=== PATIENT | male | born 1945 | race Caucasian/White ===

== ENCOUNTER 2020-04-23 21:31 | Inpatient (IN) | payer MEDICARE, OTHER, SELFPAY ==
--- NOTE | ~2020-04-23 | XR_ITS ---
EXAMINATION: XR chest ET placement DATE: 04/23/2020 22:18 INDICATION: Endotracheal tube placement TECHNIQUE: frontal view of the chest was obtained. COMPARISON: None FINDINGS: Endotracheal tube tip 6.6 cm above the mejia. Mild patchy airspace opacities in the bilateral mid an d upper lung zones. More streaky opacities in the bilateral lower lung zones. No pleural effusion or pneumothorax. The cardiomediastinal silhouette is normal. At least moderate severity thoracic spondyl osis. IMPRESSION: 1. Mild patchy airspace opacities in the bilateral mid and upper lung zones with more streaky basilar opacities. Differential includes pneumonia, atelectasis or combination thereof. Reviewed, dictated and finalized at location H. ATRIC RN IMPRESSION: 1. Mild patchy airspace opacities in the bilateral mid and upper lung zones wit h more streaky basilar opacities. Differential includes pneumonia, atelectasis or combination thereof.
--- NOTE | ~2020-04-23 | XR_ITS ---
XR chest 1V portable DATE: 04/25/2020 06:44 INDICATION: Hypercapnic respiratory failure. COPD exacerbation. TECHNIQUE: Portable AP chest on 04/25 2020 0629 hours COMPARISON: 04/24/2020 portable AP chest at 0303 hours 04/19/2020 portable AP chest at 2215 hours FINDINGS: There is bullous emphysema, with particularly prominent bullous change at the right apex. Cannot exclude 1.8 cm left upper lobe mass. There is infiltrate, atelectasis or scarring in the right upper lung zone. Mild patchy infiltrate or atelectasis is suggested in both lower lung zones. IMPRESSION: Cannot exclude to 1.8 cm left upper lobe mass Bullous emphysema Right upper and bilateral lower lung infiltrates and/or atelectasis are suggested. Reviewed, dictated and finalized at location A. ING RECOVERY TEACHER IMPRESSION: Cannot exclude to 1.8 cm left upper lobe mass Bullous emphysema Right upper and bilateral lower lung infiltrates and/or atelectasis are suggest ed.
--- NOTE | ~2020-04-23 | XR_ITS ---
XR chest ET placement 04/24/2020 03:05 Indication: Respiratory distress. Endotracheal tube placement. Procedure: AP portable chest Comparison: 04/23/2020 Findings: Endotracheal tube tip approximately 3.3 cm above the mejia. NG tube in the stomach. Stable infiltrates in the upper and lower lung zones without significant change from prior study. No pleura l effusion or pneumothorax. There is atherosclerosis. Impression: 1: Stable patchy infiltrates of the upper and lower lung zones. Differential diagnosis includes atele ctasis/scarring and/or pneumonia. Reviewed, dictated and finalized at location A. ENT PARTS CUTTER MACHINE Impression: 1: Stable patchy infiltrates of the upper and lower lung zones. Differential di agnosis includes atelectasis/scarring and/or pneumonia.
--- NOTE | ~2020-04-23 | CT_ITS ---
EXAMINATION: CT brain wo con DATE: 04/23/2020 23:25 INDICATION: Altered mental status. TECHNIQUE: Computed tomography (CT) of the head was performed without intravenous contrast. Sagittal and coronal reconstructions were performed. The mA was adjusted according to patient size. Iterative reconstruction technique was employed. The dose-length product was 756.67 mGy-cm. COMPARISON: None FINDINGS: Orogastric tube and endotracheal tube as well as a nasopharyngeal airway in expected positions. There is fluid within the distal aspect of the nasopharyngeal airway. No acute intracranial hemorrhage, ac michelle infarction or abnormal extra axial fluid collection. Symmetric prominence of the sulci and ventri cles consistent with mild to moderateage-appropriate diffuse cerebral volume loss. Ventricles are no rmal and symmetric. No mass/mass effect. Changes of bilateral intraocular lens replacement. The orbit s and mastoid air cells are normal. Moderate mucosal thickening in the bilateral ethmoid sinuses and the right frontoethmoidal recess. Intracranial calcified cerebral atherosclerosis is noted. IMPRESSION: 1. Normal aging brain with moderate diffuse volume loss. No acute intracranial process. Reviewed, dictated and finalized at location . ITY LINEMAN
--- NOTE | ~2020-04-23 | XR_ITS ---
EXAMINATION: XR abdomen NG/feed tube insert DATE: 04/23/2020 22:40 INDICATION: Nasogastric tube placement TECHNIQUE: A supine view of the abdomen was obtained for evaluation of feeding tube placement. COMPARISON: None. FINDINGS: Nasogastric tube tip in the body the stomach. Proximal side port is a couple centimeter above level o f the gastroesophageal junction would consider advancement by 5 cm. Atherosclerotic abdominal aorta w ith stenting along the right common and external iliac artery. No dilated loops of gas-filled bowel t o suggest obstruction. Lung bases are clear. Heart size is normal. Mild lumbar levocurvature with mod erate spondylosis. Mild to moderate bilateral hip osteoarthritis with prominent subchondral cystic ch anges at the lateral margins of the acetabula. IMPRESSION: 1. Nasogastric tube tip in the body of the stomach. Consider advancement by [address] the proxima l side port below the gastroesophageal junction. Reviewed, dictated and finalized at location . NG MILL SETTER IMPRESSION: 1. Nasogastric tube tip in the body of the stomach. Consider advancement by [address] the proximal side port below the gastroesophageal junction.
[2020-04-23 21:33] VITALS: BP 145/110; PULSE 108; RESP 19; O2SAT 93
[2020-04-23] MEDS: NALOXONE HCL INJ 2 MG/2 ML AMP IV PUSH (21:34)
[2020-04-23] MEDS: ROCURONIUM BROMIDE 50 MG/5 ML VIAL IV PUSH (21:42)
[2020-04-23] MEDS: MIDAZOLAM HCL (*CRX) 2 MG/2 ML VIAL 6 MG IV PUSH (21:43)
[2020-04-23 21:45] VITALS: PULSE 96; O2SAT 100
--- NOTE | 2020-04-23 21:45 | ECG_ITS ---
Measurements Intervals [place] Rate: 102 P: 87 AL: 158 QRS: 78 QRSD: 90 T: 71 QT: 348 QTc: 454 Interpretive Statements SINUS TACHYCARDIA BORDERLINE ECG Electronically Signed On 04-24-2020 7:25:49 SPLITTING MACHINE OPERATOR by Ariel Calvert D.O.
--- NOTE | 2020-04-23 21:45 | PC.NURSE ---
ET tube size 8.0 used and 55 at the gums.
--- NOTE | 2020-04-23 21:49 | ED.GENADULT ---
HPI - General Adult General Chief complaint: Unspecified Stated complaint: unresponsive, intubated Time Seen by Provider: 04/23/20 21:45 History of Present Illness HPI narrative: Found unresponsive at home by family. Last seen well 2 days ago. Known history of COPD per EMS. They attempted intubation , but were not able to get it. LMA was placed. Oxygenated well with assisted ventilation. Patient not able to provide history due to medical condition. Review of Systems Review of Systems: ROS unobtainable: Yes unobtainable due to medical condition [facility] Past Medical History Medical History (Updated 04/24/20 @ 03:37 by Jerry Rosenberg MD) Chronic respiratory failure COPD (chronic obstructive pulmonary disease) Social History Social History (Updated 04/24/20 @ 02:11 by Rich Lorenzana MD) Smoking status: Current every day smoker Tobacco type: cigarettes Comments unable to obtain additonal history Exam Const: General: ill appearing Nutritional Appearance: thin Orientation/consciousness: Other orientation findings (sedated) HENMT: Mouth: Yes other (LMA in place) Eyes: Other: Pupils Resp: Effort & Inspection: decreased respiratory effort Auscultation: crackles Cardio: Rate: regular rate Rhythm: regular rhythm GI: GI Palp: Yes Soft to palpation Skin: Other: poor turgor. dried feces on legs. Neuro: Other: with draws from painful stimuli Extrem: Other: atrophy Course Vital Signs Vital signs: Vital Signs Pulse Rate 108 H 04/23/20 21:33 Respiratory Rate 19 04/23/20 21:33 Blood Pressure 145/110 H 04/23/20 21:33 Pulse Oximetry 93 04/23/20 21:33 Pulse Rate 89 04/24/20 01:23 Respiratory Rate 24 H 04/24/20 01:23 Blood Pressure 121/71 04/24/20 01:23 Pulse Oximetry 100 04/24/20 00:05 Procedures Intubation Intubation #1: Intubation Date: 04/23/20 Intubation Time: 21:55 sedative: Versed Mg Given: 6 paralytic: Rocuronium Mg Given: 50 Laryngoscope: fiber optic video scope Tube Size (cm): 8.0 Method of Intubation: orotracheal Number of Attempts: 1 Tube Placement Confirmation: visualized tube passing through cords, equal breath sounds bilaterally, no breath sounds over epigastrium and confirmation by capnometry Patient Tolerated Procedure: well Intubation Complications: none Medical Decision Making MDM Narrative Medical decision making narrative: Presentation likely explained by COPD with CO2 retention. Cannot rule out pneumonia or COVID-19 at this time. Will start antibiotis and admit to the ICU for further management. Repeat ABG shows significant improvment. Medical Records Medical records reviewed: Yes I reviewed the patient's medical records. Vital Signs Vital Signs: Vital Signs Pulse Rate 108 H 04/23/20 21:33 Respiratory Rate 19 04/23/20 21:33 Blood Pressure 145/110 H 04/23/20 21:33 Pulse Oximetry 93 04/23/20 21:33 Pulse Rate 89 04/24/20 01:23 Respiratory Rate 24 H 04/24/20 01:23 Blood Pressure 121/71 04/24/20 01:23 Pulse Oximetry 100 04/24/20 00:05 Lab Data Lab results reviewed: Yes I reviewed the patient's lab results. Result diagrams: 04/23/20 21:56 04/23/20 21:56 Labs: Lab Results 04/23/20 04/23/20 04/23/20 Range/Units 21:50 21:56 21:56 WBC 11.7 H (4.5-10.0) K/mm3 RBC 3.85 L (4.6-6.20) M/mm3 Hgb 12.2 L (14.0-18.0) g/dL Hct 41.0 L (42.0-52.0) % MCV 106.5 H (80-100) fl MCH 31.7 (26-34) pg MCHC 29.8 L (32-36) g/dl RDW 14.4 (11.5-14.5) % Plt Count 285 (150-375) k/mm3 MPV 9.4 (7.4-10.4) fl Immature Gran % (Auto) 2.4 H (0-0.5) % Neut % (Auto) 86.0 H (45.5-73.1) % Lymph % (Auto) 4.6 L (18.3-44.2) % [place] % (Auto) 6.5 (2.6-8.5) % Eos % (Auto) 0.0 (0-4.4) % Baso % (Auto) 0.5 (0.2-1.2) % Lymph # (Auto) 0.54 L (0.9-3.2) K/mm3 [place] # (
[2020-04-23 22:00] LABS: Alveolar/Arterial O2 Gradient 112.3 mmHg; Base Excess ABG 9.1 mEq/l (+/-2.0); Fractional Inspired Oxygen 100 %; HCO3 ABG 39.2 mEq/l (22.0-26.0); Oxygen Content ABG 18.7 %vol (16.0-22.0); Oxygen Saturation ABG 99.8 % (95.0-100.0); Oxyhemoglobin 96.6 % THb (90.0-100.0); PO2 ABG 513.6 mmHg (80.0-100.0); PO2 FiO2 Ratio Arterial Blood 5.14 %; Total Hemoglobin 12.7 g/dL (12.0-18.0)
[2020-04-23 22:01] LABS: PCO2 ABG 87.1 mmHg (35.0-45.0); pH ABG 7.271 (7.350-7.450)
[2020-04-23 22:02] LABS: Device VENTILATOR; Site Drawn RIGHT BRACHIAL
[2020-04-23 22:04] LABS: Arterial Blood Gas PEEP 5 cmH2O; Arterial Blood Gas Tidal Volume 450 ml; Arterial Blood Gas Vent Mode CMV; Arterial Blood Gas Ventilator rate 18 /MIN
[2020-04-23 22:19] LABS: Basophils Absolute Auto 0.1 K/mm3 (0.0-0.1); Basophils Percent Auto 0.5 % (0.2-1.2); Hemoglobin 12.2 g/dL (14.0-18.0); Immature Granulocyte Absolute 0.28 K/mm3 (0.00-0.031); Immature Granulocyte Percent A 2.4 % (0-0.5); Lymphocytes Absolute Auto 0.54 K/mm3 (0.9-3.2); Lymphocytes Percent Auto 4.6 % (18.3-44.2); Mean Corpuscular HGB Conc 29.8 g/dl (32-36); Mean Corpuscular Hemoglobin 31.7 pg (26-34); Mean Corpuscular Volume 106.5 fl (80-100); Mean Platelet Volume 9.4 fl (7.4-10.4); Monocytes Absolute Auto 0.8 K/mm3 (0.1-0.6); Monocytes Percent Auto 6.5 % (2.6-8.5); Platelet Count Result 285 k/mm3 (150-375); Red Blood Count 3.85 M/mm3 (4.6-6.20); Red Cell Distribution Width 14.4 % (11.5-14.5); White Blood Count 11.7 K/mm3 (4.5-10.0)
[2020-04-23 22:24] LABS: Add Urine Microscopic? YES; Appearance Urine Clear (Clear); Bilirubin Urine Negative (Negative); Blood Urine Negative (Negative); Color Urine Yellow (Yellow); Glucose Urine UA Negative (Negative); Ketones Urine Trace mg/dL (Negative); Leukocyte Esterase Ur Negative LEU/UL (Negative); Mucus Urine Rare /lpf; Nitrate Urine Negative (Negative); Protein Urine 2+ mg/dL (Negative); RBC Urine 0-2 /hpf (0-2); Specific Grav Ur 1.015 (1.001-1.035); Urobilinogen Urine Negative mg/dL (<2.0); WBC Urine 0-3 /hpf
[2020-04-23 22:28] LABS: INR 0.9; Prothrombin Time 12.7 Seconds (11.1-14.7)
[2020-04-23 22:29] LABS: Lactic Acid Reflex 1.8 mmol/L (0.7-2.1); Partial Thromboplastin Time 29.2 SECONDS (22.3-36.8)
[2020-04-23 22:45] LABS: Platelet Estimate Adequate (Adequate)
[2020-04-23 22:46] LABS: Hypochromasia 1+ (NORMAL)
[2020-04-23 22:58] VITALS: PULSE 90; RESP 26
[2020-04-23] MEDS: FENTANYL 2,500MCG/NS250ML(*CRX 2,500 MCG/250 ML BAG IV CONT (22:58)
[2020-04-23 23:02] LABS: Alanine Aminotransferase 20 U/L (4-50); Albumin Level 3.7 g/dL (3.5-5.1); Alkaline Phosphatase 105 U/L (38-126); Anion Gap 10.99999 mmol/L (8-16); Aspartate Amino Transferase 27 U/L (17-59); Bilirubin,Total 0.9 mg/dL (0.2-1.3); Blood Urea Nitrogen 31 mg/dL (9-20); CRP 1.5 mg/dL (<1.0); Calcium 9.3 mg/dL (8.4-10.2); Carbon Dioxide > 40 mmol/L (22-30); Chloride 93 mmol/L (98-107); Estimated CRCL calculation 67 ml/min; Estimated Glomerular Filt Rate > 60; Glucose 160 mg/dL (75-110); NT Pro B Type Natriuretic Pept 1110 PG/ML (5-100); Sodium 144 mmol/L (137-145); Troponin I 0.035 ng/mL (0.000-0.034)
[2020-04-24] VITALS (35 sets, daily range): BP systolic 92–226; BP diastolic 63–194; PULSE 53–107; RESP 18–24; TEMP 36.1–37.1; O2SAT 91–100; BMI 21.9
[2020-04-24 00:15] LABS: Alveolar/Arterial O2 Gradient 253.5 mmHg; Base Excess ABG 5.6 mEq/l (+/-2.0); Fractional Inspired Oxygen 45 %; HCO3 ABG 33.2 mEq/l (22.0-26.0); Oxygen Content ABG 16.7 %vol (16.0-22.0); Oxygen Saturation ABG 88.9 % (95.0-100.0); Oxyhemoglobin 90.1 % THb (90.0-100.0); PO2 ABG 60.1 mmHg (80.0-100.0); PO2 FiO2 Ratio Arterial Blood 1.34 %; Total Hemoglobin 13.2 g/dL (12.0-18.0)
[2020-04-24 00:16] LABS: Device VENTILATOR; Site Drawn RIGHT BRACHIAL
[2020-04-24 00:17] LABS: Arterial Blood Gas PEEP 5 cmH2O; Arterial Blood Gas Tidal Volume 450 ml; Arterial Blood Gas Vent Mode CMV; Arterial Blood Gas Ventilator rate 24 /MIN
[2020-04-24] MEDS: methylPREDNISolone SOD SUCC 125 MG VIAL 60 MG IV PUSH ×5 (00:51→23:58)
--- NOTE | 2020-04-24 02:03 | PM.IMHP ---
H&P: HPI History of Present Illness Date/Time: 04/24/20 02:04 Chief complaint: Acute respiratory failure, encephalopathy Narrative: This is a 75-year-old male with known history of severe end-stage COPD as well as chronic respiratory failure on 4 L of oxygen at home who was found unresponsive at home by his family. The patient's sister who is at bedside tells me that the patient lives alone and obtained a life alert this past May. His sister mentions that he used to drink alcohol but not any longer.This evening around 8:00 p.m. the patient pushed his Life Alert and the family became aware that he was in trouble. It took him about 40 minutes to get to his house and they found him unresponsive. EMS arrived on the scene shortly afterwards and attempted intubation but placed an LMA as they could not intubate the patient. On arrival to the emergency room the patient was intubated and placed on mechanical ventilation. Initial ABG demonstrated hypercapnic respiratory failure with a pCO2 of 87.1. CXR showed miild patchy airspace opacities in the bilateral mid and upper lung zones with more streaky basilar opacities. The patient has been started on IV antibiotics, steroid therapy, IV fluids and bronchodilators. No futher history is obtainable as the patient is intubated and sedated on mechanical ventilation. Review of Systems Review of Systems: ROS unobtainable: Yes unobtainable due to medical condition and unobtainable due to mental status PMFSH Past Medical History Medical History Chronic respiratory failure COPD (chronic obstructive pulmonary disease) Family History Family History Mother No problems noted. Sibling Cancer Sibling Cancer Social History Social History Smoking packs per day: 1 Smoking cigarettes per day: 20.0 Years smoked: 50 Smoking pack-years: 50.00 Smoking status: Current every day smoker Tobacco type: cigarettes Alcohol intake: current Drinks per week: 1 Substance use: unknown Spiritual care concerns: No Comments Past medical/surgical/family/social histories are not obtainable from the patient at this time. Meds Home Medications and Allergies Home Medications Medication Instructions Recorded Confirmed Type apixaban [Eliquis] 5 mg PO BID 04/24/20 04/24/20 History atorvastatin 40 mg PO HS 04/24/20 04/24/20 History buspirone 5 mg PO TID 04/24/20 04/24/20 History dextromethorphan-guaifenesin 1 tablet PO DAILY 04/24/20 04/24/20 History [Mucinex DM] diltiazem HCl 180 mg PO DAILY 04/24/20 04/24/20 History finasteride [Proscar] 5 mg PO DAILY 04/24/20 04/24/20 History furosemide [Lasix] 40 mg PO DAILY 04/24/20 04/24/20 History potassium chloride 40 meq PO BID 04/24/20 04/24/20 History tamsulosin 0.4 mg PO HS 04/24/20 04/24/20 History Vital Signs Vital Signs - 24 hr 04/23/20 21:33 04/23/20 21:45 04/23/20 22:58 Pulse Rate 108 H 96 90 Respiratory Rate 19 26 H Blood Pressure 145/110 H Pulse Oximetry 93 100 04/24/20 00:05 04/24/20 00:22 04/24/20 01:23 Pulse Rate 94 89 Respiratory Rate 24 H Blood Pressure 226/194 H 121/71 Pulse Oximetry 100 Exam Const: General: ill appearing and other (intubated, sedated, on mechanical ventilation) Nutritional Appearance: well nourished Orientation/consciousness: patient oriented x3 HENMT: Head: normal to inspection General nose exam: Normal external nose present Face and sinus: normal facial exam Mouth: Yes other (ETT in place+ ) Eyes: Pupils: Equal, round and reactive pupils present Neck: Neck: supple and no JVD Thyroid: thyroid normal Lymphatic: lymphadenopathy not noted Resp: Effort & Inspection: tachypneic Auscultation: wheezes throughout Cardio: Rate: tachycardic Rhythm: regular rhythm Heart sounds: no murmurs GI: Inspection
--- NOTE | 2020-04-24 03:25 | PC.NURSE ---
This patient, Hubert Luna, was admitted to Intensive Care Unit-10. Patient/family oriented to hospital policies and general routines including ID bracelet, bed and alarms, visiting hours, pain management, procedures, bathroom and other care routines, personal items, smoking policy, room service/diet, and visiting hours. Information on how to activate the Rapid Response Team has been discussed. Patient/Family are encouraged to report perceived risks to care and to ask questions if they do not understand what they are told or what they should do.
[2020-04-24 03:34] LABS: Acetaminophen < 10 ug/mL (10-30); Salicylate < 1.0 mg/dL (2-20)
[2020-04-24 03:40] LABS: Creatine Kinase 64 U/L (55-170)
[2020-04-24 03:43] LABS: Hemoglobin A1C 6.7 % (<5.7)
[2020-04-24 04:10] LABS: Troponin I 0.055 ng/mL (0.000-0.034)
[2020-04-24] MEDS: LACTATED RINGERS 1,000 ML 125 ML IV CONT ×2 (04:12→12:26)
[2020-04-24] MEDS: FENTANYL 2,500MCG/NS250ML(*CRX 2,500 MCG/250 ML BAG 15 MCG IV CONT (04:14)
[2020-04-24 04:23] LABS: Barbiturate Screen Urine Negative (Negative); Benzodiazepines Screen Urine Positive (Negative)
[2020-04-24 04:26] LABS: Amphetamine Screen Urine Negative (Negative); Cocaine Screen Urine Negative (Negative); Methadone Screen Urine Negative (Negative); Opiate Screen Urine Negative (Negative); Phencyclidine Screen Urine Negative (Negative)
[2020-04-24 04:34] LABS: Cannabinoid Screen Urine Negative (Negative)
[2020-04-24 04:48] LABS: Influenza Control Positive
[2020-04-24 07:59] LABS: Alveolar/Arterial O2 Gradient 148.7 mmHg; Base Excess ABG 8.6 mEq/l (+/-2.0); Fractional Inspired Oxygen 45 %; HCO3 ABG 31.9 mEq/l (22.0-26.0); Oxygen Content ABG 16.3 %vol (16.0-22.0); Oxygen Saturation ABG 98.8 % (95.0-100.0); Oxyhemoglobin 97.8 % THb (90.0-100.0); PO2 ABG 127.8 mmHg (80.0-100.0); PO2 FiO2 Ratio Arterial Blood 2.84 %; Total Hemoglobin 11.7 g/dL (12.0-18.0)
[2020-04-24 08:02] LABS: Device VENTILATOR; Modified Allen's Test Pass; Site Drawn LEFT RADIAL; pH ABG 7.531 (7.350-7.450)
[2020-04-24 08:03] LABS: Arterial Blood Gas PEEP 5 cmH2O; Arterial Blood Gas Tidal Volume 450 ml; Arterial Blood Gas Vent Mode CMV; Arterial Blood Gas Ventilator rate 24 /MIN
[2020-04-24] MEDS: ALBUTEROL SULFATE NEB 2.5 MG/0.5 ML INH 5 MG INHALATION ×3 (08:15→19:46)
[2020-04-24] MEDS: IPRATROPIUM BR 0.02% INH SOLN 0.5 MG/2.5 ML VIAL INHALATION ×3 (08:15→19:46)
--- NOTE | 2020-04-24 11:20 | PCDIET ---
MD ordered to start tube feedings: Glucerna 1.2 at goal rate of 60mL/hr will provide 1584kcal, 79g protein and 1062mL free water over 22 hours/day. Agree with 30mL water flush every 4 hours.
[2020-04-24] MEDS: LIDOCAINE HCL 1% PF INJ 5 ML VIAL INFILTRATE (11:25)
[2020-04-24 12:24] LABS: Basophils Percent Auto 0.1 % (0.2-1.2); Hematocrit 33.7 % (42.0-52.0); Hemoglobin 10.3 g/dL (14.0-18.0); Immature Granulocyte Absolute 0.08 K/mm3 (0.00-0.031); Lymphocytes Absolute Auto 0.42 K/mm3 (0.9-3.2); Lymphocytes Percent Auto 5.4 % (18.3-44.2); Mean Corpuscular HGB Conc 30.6 g/dl (32-36); Mean Corpuscular Volume 101.5 fl (80-100); Mean Platelet Volume 9.3 fl (7.4-10.4); Monocytes Absolute Auto 0.4 K/mm3 (0.1-0.6); Monocytes Percent Auto 4.8 % (2.6-8.5); Neutrophils Absolute Auto 6.9 K/mm3 (1.3-6.7); Neutrophils Percent Auto 88.7 % (45.5-73.1); Platelet Count Result 218 k/mm3 (150-375); Red Blood Count 3.32 M/mm3 (4.6-6.20); Red Cell Distribution Width 14.6 % (11.5-14.5); White Blood Count 7.8 K/mm3 (4.5-10.0)
[2020-04-24 12:36] LABS: Anion Gap 2.99999 mmol/L (8-16); Blood Urea Nitrogen 38 mg/dL (9-20); Calcium 8.7 mg/dL (8.4-10.2); Carbon Dioxide > 40 mmol/L (22-30); Chloride 95 mmol/L (98-107); Estimated CRCL calculation 58 ml/min; Estimated Glomerular Filt Rate > 60; Glucose 199 mg/dL (75-110); Potassium 4.2 mmol/L (3.4-5.0); Sodium 138 mmol/L (137-145)
[2020-04-24 12:54] LABS: Troponin I 0.039 ng/mL (0.000-0.034)
[2020-04-24] MEDS: CENTRAL LINE FLUSH 10 ML IV PUSH ×2 (14:05→21:40)
--- NOTE | 2020-04-24 15:10 | WPDCNINT ---
Assessment and Plan Assessment and plan (1) Acute respiratory failure with hypercapnia: Code(s): J96.02 - Acute respiratory failure with hypercapnia Status: Acute Assessment and Plan: patient presented with acute hypercapnic respiratory failure, was intubated in the ER -currently on mechanical ventilation, CMV mode, 5 of PEEP and 45% FiO2. Patient in respiratory alkalosis, will decrease rate. -continue fentanyl Versed infusion for sedation, maintain RASS of 0 to -2, daily sedation vacation -chest x-ray and ABGs reviewed -continue ceftriaxone, azithromycin and vancomycin were initiated on 04/24/2020 -according the family patient does have a history of recent admission and multiple intubations over the course of the year. Patient normally is treated at [facility] (2) Acute exacerbation of chronic obstructive pulmonary disease (COPD): Code(s): J44.1 - Chronic obstructive pulmonary disease with (acute) exacerbation Status: Acute Assessment and Plan: Continue Solu-Medrol, antibiotics and bronchodilators (3) Acute encephalopathy: Code(s): G93.40 - Encephalopathy, unspecified Status: Acute Assessment and Plan: Patient was found unresponsive by family at his house. Hypercapnic respiratory failure. Unknown if there was any hypoxia -will wean sedation in a.m. and try to assess mental status -CT head on admission showed normal aging brain with moderate diffuse volume loss, no acute intracranial process (4) Suspected 2019 novel coronavirus infection: Code(s): Z20.828 - Contact with and (suspected) exposure to other viral communicable diseases Status: Acute Assessment and Plan: SARS-CoV-2 PCR obtained and pending -continue droplet, airborne and contact isolation/precautions (5) Elevated troponin: Code(s): R77.8 - Other specified abnormalities of plasma proteins Status: Acute Assessment and Plan: Troponin slightly elevated and plateaued -could be related to respiratory distress -no EKG changes -continue to monitor (6) DVT prophylaxis: Code(s): Z29.9 - Encounter for prophylactic measures, unspecified Status: Acute Assessment and Plan: DVT prophylaxis: Lovenox (7) Dietary counseling and surveillance: Code(s): Z71.3 - Dietary counseling and surveillance Status: Acute Assessment and Plan: Will start tube feeds today Stress ulcer prophylaxis: Protonix Additional Plan Discussed with Efren patient's son and updated with his condition and plan of care. Code status: Full code Critical care time spent: 49 minutes Due to a high probability of clinically significant, life threatening deterioration, the patient required my highest level of preparedness to intervene emergently and I personally spent this critical care time directly and personally managing the patient. This critical care time included obtaining a history; examining the patient; pulse oximetry; ordering and review of studies; arranging urgent treatment with development of a management plan; evaluation of patient's response to treatment; frequent reassessment; and discussions with other providers. It was exclusive of separately billable procedures and treating other patients and teaching time. Please see Assessment and Plan section and the rest of the note for further information on patient assessment and treatment Director Occupational Consult Note Consult date: 04/24/20 Time Seen: 07:10 Reason for consult: Acute respiratory failure, encephalopathy HPI: Hubert Luna is a 75 year old male chronic respiratory failure on 4 L home O2, history of PD, tobacco abuse presented to the ED after he was found unresponsive at home by his family. Patient had a life alert which was activated and as the family became aware it took them 40 minutes to reach his house and found him unresponsive, EMS also shortly arrived at the scene, attempted to intubate the patient but was u
[2020-04-24] MEDS: PANTOPRAZOLE SODIUM IV 40 MG VIAL IV PUSH (16:04)
[2020-04-24 21:15] LABS: SARS-CoV-2 RNA PCR Negative
[2020-04-25] VITALS (36 sets, daily range): BP systolic 95–145; BP diastolic 61–118; PULSE 50–91; RESP 16–24; TEMP 36.3–36.9; O2SAT 88–100
--- NOTE | 2020-04-25 | ECHO_ITS ---
Patient Info Name: Hubert Luna Age: 75 years : 1945 Gender: Male Ht: 68 in Wt: 156 lbs BSA: 1.85 m2 HR: 70 bpm BP: 127 / 80 mmHg Heart Rhythm: Sinus Rhythm Technical Quality: Poor Exam Date: 04/25/2020 2:30 PM Exam Location: [facility] Patient Status: Inpatient Admit Date: 04/23/2020 Staff Ordering Physician: Katy Vital MD Hand Trucker: Pooja De Leon [facility] Attending Provider: Rich Lorenzana MD Referring Physician: Amanuel SCHAEFER; Exam Type: CA echo dop color flow w con Study Info Complete two-dimensional, color flow and Doppler transthoracic echocardiogram is performed with contrast to opacify the left ventricle and to improve the deliniation of the left ventricle endocardial borders. Contrast/Agitated Saline Contrast/Ag. Saline: Definity Amount: 4.00 ml Reason for Poor Study: poor echocardiographic windows Summary 1. Left ventricular chamber dimension is normal. 2. Left ventricular systolic function is normal, estimated at 50-55%. 3. Definity copntrast injected to improve visualization \E\. 4. Aortic valve is mildly slerotic but not stenotic. Left Ventricle Left ventricular chamber dimension is normal. Left ventricular systolic function is normal, estimated at 50-55%. The left ventricular diastolic function is normal. Definity copntrast injected to improve visualization \E\. Right Ventricle Right ventricular chamber dimension is normal. Left Atria Left atrial chamber dimension is normal. Right Atria Right atrial chamber dimension is normal. Aortic Valve The aortic valve is trileaflet. There is mild aortic valve sclerosis. Aortic valve is mildly slerotic but not stenotic. Pulmonic Valve The pulmonic valve is not well visualized. Mitral Valve The mitral valve has normal leaflets. Tricuspid Valve The tricuspid valve leaflets are normal. Pericardium/Pleural The pericardium appears normal. Aorta The aortic root size at the sinus of Valsalva is normal. Left Ventricular Outflow Tract Name Value Normal LVOT 2D LVOT Diameter 2.22 cm LVOT Doppler LVOT Peak Gradient 6 mmHg LVOT Mean Gradient 3 mmHg LVOT VTI 23.79 cm LVOT VTI/AV VTI Ratio 1.04 LVOT Stroke Volume 92.00 ml LVOT CO 5.61 l/min LVOT CI 3.04 L/min/m2 Pulmonic Valve Name Value Normal PV Doppler PV Peak Gradient 11 mmHg Mitral Valve Name Value Normal MV Doppler
[2020-04-25] MEDS: FENTANYL 2,500MCG/NS250ML(*CRX 2,500 MCG/250 ML BAG 7.5 MCG IV CONT (01:15)
[2020-04-25] MEDS: ALBUTEROL SULFATE NEB 2.5 MG/0.5 ML INH 5 MG INHALATION ×2 (02:20→08:06)
[2020-04-25] MEDS: IPRATROPIUM BR 0.02% INH SOLN 0.5 MG/2.5 ML VIAL INHALATION ×4 (02:20→21:18)
[2020-04-25 04:20] LABS: Alveolar/Arterial O2 Gradient 159.6 mmHg; Base Excess ABG 5.9 mEq/l (+/-2.0); Carboxyhemoglobin 0.3 % THb (0-2.0); Fractional Inspired Oxygen 40 %; HCO3 ABG 30.6 mEq/l (22.0-26.0); Methemoglobin ABG 0.2 %THb (0-1.5); Oxygen Content ABG 14.8 %vol (16.0-22.0); Oxygen Saturation ABG 95.3 % (95.0-100.0); Oxyhemoglobin 93.4 % THb (90.0-100.0); PCO2 ABG 45.2 mmHg (35.0-45.0); PO2 ABG 73.6 mmHg (80.0-100.0); PO2 FiO2 Ratio Arterial Blood 1.84 %; Reduced Hemoglobin 6.1 %THb (0-5.0); Total Hemoglobin 11.2 g/dL (12.0-18.0); pH ABG 7.449 (7.350-7.450)
[2020-04-25 04:21] LABS: Arterial Blood Gas Vent Mode CMV; Arterial Blood Gas Ventilator rate 18 /MIN; Device VENTILATOR; Modified Allen's Test Unable to perform; Site Drawn LEFT RADIAL
[2020-04-25 04:22] LABS: Arterial Blood Gas PEEP 5 cmH2O; Arterial Blood Gas Tidal Volume 450 ml
[2020-04-25] MEDS: CENTRAL LINE FLUSH 10 ML IV PUSH ×3 (05:21→21:13)
[2020-04-25] MEDS: methylPREDNISolone SOD SUCC 125 MG VIAL 60 MG IV PUSH ×2 (05:21→11:32)
[2020-04-25 05:42] LABS: Basophils Percent Auto 0.1 % (0.2-1.2); Hematocrit 33.2 % (42.0-52.0); Hemoglobin 10.4 g/dL (14.0-18.0); Immature Granulocyte Absolute 0.07 K/mm3 (0.00-0.031); Immature Granulocyte Percent A 0.9 % (0-0.5); Lymphocytes Absolute Auto 0.28 K/mm3 (0.9-3.2); Lymphocytes Percent Auto 3.7 % (18.3-44.2); Mean Corpuscular HGB Conc 31.3 g/dl (32-36); Mean Corpuscular Hemoglobin 30.8 pg (26-34); Mean Corpuscular Volume 98.2 fl (80-100); Mean Platelet Volume 9.8 fl (7.4-10.4); Monocytes Absolute Auto 0.3 K/mm3 (0.1-0.6); Monocytes Percent Auto 4.2 % (2.6-8.5); Neutrophils Percent Auto 91.1 % (45.5-73.1); Platelet Count Result 227 k/mm3 (150-375); Red Blood Count 3.38 M/mm3 (4.6-6.20); Red Cell Distribution Width 15.2 % (11.5-14.5); White Blood Count 7.7 K/mm3 (4.5-10.0)
[2020-04-25 06:14] LABS: Alanine Aminotransferase 16 U/L (4-50); Alkaline Phosphatase 75 U/L (38-126); Anion Gap 3 mmol/L (8-16); Aspartate Amino Transferase 20 U/L (17-59); Bilirubin,Total 0.6 mg/dL (0.2-1.3); Blood Urea Nitrogen 52 mg/dL (9-20); CRP 1.5 mg/dL (<1.0); Calcium 8.8 mg/dL (8.4-10.2); Carbon Dioxide 38 mmol/L (22-30); Chloride 92 mmol/L (98-107); Estimated CRCL calculation 60 ml/min; Estimated Glomerular Filt Rate > 60; Glucose 315 mg/dL (75-110); Magnesium 2.3 mg/dL (1.6-2.3); Phosphorus 3.9 mg/dL (2.5-4.5); Potassium 4.5 mmol/L (3.4-5.0); Sodium 133 mmol/L (137-145)
[2020-04-25 06:32] LABS: Platelet Estimate Adequate (Adequate)
[2020-04-25 06:33] LABS: Hypochromasia 2+ (NORMAL); Ovalocytes 2+ (NORMAL); Tear Drop Cells 2+ (NORMAL)
--- NOTE | 2020-04-25 08:24 | PC.NURSE ---
Spoke with POA and update given. POA states no allergies.
[2020-04-25] MEDS: PANTOPRAZOLE SODIUM IV 40 MG VIAL IV PUSH (09:32)
[2020-04-25] MEDS: ENOXAPARIN 40 MG/0.4 ML SYRINGE SUB-Q (09:43)
[2020-04-25 09:50] LABS: Glucose Point of Care 233 (65-105)
[2020-04-25] MEDS: INSULIN ASPART (*BKC) 100 UNITS/ML SUB-Q ×3 (09:50→23:48)
[2020-04-25] MEDS: FUROSEMIDE INJ 40 MG/4 ML VIAL 20 MG IV PUSH (11:31)
--- NOTE | 2020-04-25 13:35 | WPDINTPN ---
Progress Note: A&P Assessment and Plan (1) Acute respiratory failure with hypercapnia: Code(s): J96.02 - Acute respiratory failure with hypercapnia Status: Acute Assessment and Plan: extubated to BIPAP 18/4, back up rate of 16 and titrating FiO2 for sats of 88-92% (2) Chronic respiratory failure: Qualifiers: Respiratory failure complication: unspecified whether with hypoxia or hypercapnia Qualified Code(s): J96.10 - Chronic respiratory failure, unspecified whether with hypoxia or hypercapnia Code(s): J96.10 - Chronic respiratory failure, unspecified whether with hypoxia or hypercapnia Status: Acute (3) Severe chronic obstructive pulmonary disease: Code(s): J44.9 - Chronic obstructive pulmonary disease, unspecified Status: Acute Assessment and Plan: - decrease solumedrol to 40 mg IV Q6 and continue for 5-7 days - continue ceftriaxone and azithromycin for 5-7 days - continue duonebs Q6h - pulmicort added 0.5 mg bid (4) COPD exacerbation: Code(s): J44.1 - Chronic obstructive pulmonary disease with (acute) exacerbation Status: Acute Subjective Date/time seen: 04/25/20 13:35 Interval history: 75 y/o male with severe COPD, hyperlipidemia, AFib, prior hisotory of TB is intubated for COPD exacerbation. He was doing well on minimal vent support and did well on SBT and was extubated to BIPAP successfully. Review of Systems Review of Systems: All systems reviewed & are unremarkable except as noted in HPI and below Exam Const: General: comfortable and no acute distress HENMT: Other: ETT in place Eyes: Pupils: Equal, round and reactive pupils present Neck: Neck: supple Resp: Effort & Inspection: normal respiratory effort Auscultation: rales and diminished lung sounds Cardio: Rate: bradycardic Rhythm: regular rhythm GI: Inspection: non-distended GI Palp: Yes Soft to palpation and No Tenderness to palpation present (GI) Auscultation: normal bowel sounds : Other: Alvarado catheter in place Urinary Catheter: Urinary Catheter: patent and draining and urine clear Skin: General skin exam: normal color and no rashes or lesions noted Neuro: Other: Patient intubated and sedated, does not follow simple commands open his eyes Extrem: General: normal to inspection, no edema and no pedal edema Psych: Other: Unable to assess at this time Objective Data Vital Signs Vital Signs: Vital Signs - 24 hr 04/24/20 14:00 04/24/20 14:14 04/24/20 16:00 Temperature 36.1 C L Pulse Rate 55 L 60 59 L Respiratory Rate 18 18 Blood Pressure 108/67 102/70 Pulse Oximetry 100 100 100 04/24/20 16:02 04/24/20 16:51 04/24/20 18:00 Temperature Pulse Rate 58 L 55 L 55 L Respiratory Rate 18 18 Blood Pressure 93/68 L Pulse Oximetry 100 100 04/24/20 18:40 04/24/20 18:41 04/24/20 19:49 Temperature Pulse Rate 56 L 56 L 58 L Respiratory Rate 18 18 Blood Pressure Pulse Oximetry 91 04/24/20 19:52 04/24/20 20:00 04/24/20 22:00 Temperature 36.4 C L Pulse Rate 58 L 55 L 54 L Respiratory Rate 18 18 18 Blood Pressure 109/76 92/63 L Pulse Oximetry 99 100 04/24/20 23:45 04/25/20 00:00 04/25/20 00:35 Temperature 36.3 C L Pulse Rate 54 L 54 L Respiratory Rate 18 Blood Pressure 109/66 Pulse Oximetry 96 96 96 04/25/20 01:13 04/25/20 01:15 04/25/20 02:00 Temperature Pulse Rate 54 L 54 L 50 L Respiratory Rate 18 18 18 Blood Pressure 95/61 L Pulse Oximetry 98 04/25/20 02:23 04/25/20 02:25 04/25/20 04:00 Temperature 36.4 C L Pulse Rate 50 L 50 L 50 L Respiratory Rate 18 18 Blood Pressure 103/63 Pulse Oximetry 98 97 04/25/20 04:21 04/25/20 05:18 04/25/20 05:19 Temperature Pulse Rate 50 L 56 L 55 L Respiratory Rate 18 18 Blood Pressure Pulse Oximetry 98 04/25/20 06:00 04/25/20 08:05 04/25/20 08:08 Temperature Pulse Rate 54 L 62 62 Respiratory Rate 18 18 Blood Pressure
[2020-04-25] MEDS: ALBUTEROL SULFATE NEB 2.5 MG/0.5 ML INH INHALATION ×2 (13:56→21:18)
[2020-04-25 15:22] LABS: Glucose Point of Care 233 (65-105)
[2020-04-25 15:52] LABS: Basophils Percent Auto 0.2 % (0.2-1.2); Hematocrit 34.6 % (42.0-52.0); Hemoglobin 11.1 g/dL (14.0-18.0); Immature Granulocyte Absolute 0.07 K/mm3 (0.00-0.031); Immature Granulocyte Percent A 0.6 % (0-0.5); Lymphocytes Absolute Auto 0.22 K/mm3 (0.9-3.2); Lymphocytes Percent Auto 1.8 % (18.3-44.2); Mean Corpuscular HGB Conc 32.1 g/dl (32-36); Mean Corpuscular Hemoglobin 31.4 pg (26-34); Mean Platelet Volume 9.6 fl (7.4-10.4); Monocytes Absolute Auto 0.7 K/mm3 (0.1-0.6); Monocytes Percent Auto 5.6 % (2.6-8.5); Neutrophils Absolute Auto 11.3 K/mm3 (1.3-6.7); Neutrophils Percent Auto 91.8 % (45.5-73.1); Platelet Count Result 216 k/mm3 (150-375); Red Blood Count 3.53 M/mm3 (4.6-6.20); Red Cell Distribution Width 15.3 % (11.5-14.5); White Blood Count 12.3 K/mm3 (4.5-10.0)
[2020-04-25 16:22] LABS: Vancomycin Trough 15.9 ug/mL (10.0-20.0)
--- NOTE | 2020-04-25 17:00 | PM.IMPN ---
Progress Note: A&P Assessment and Plan (1) Acute respiratory failure with hypercapnia: Code(s): J96.02 - Acute respiratory failure with hypercapnia Status: Acute Assessment and Plan: Acute respiratory failure on superimposed chronic respiratory failure may be secondary to hypercapnia and respiratory arrest among other possible causes of respiratory failure such as acute pneumonia. We will obtain a urine drug screen. He will be admitted to ICU, telemetry, NPO, continue ventilatory support and wean off as tolerated. RT assess and treat. Monitor ABG. Chrome Tanning Drum Operator, Dr. Mendoza has been consulted. 04/25/20 17:00 Patient is 75-year-old male with history of severe end stage COPD chronic respiratory failure on 4 L oxygen, patient activated his life alert which alerted his family, upon arrival of his family patient was found unresponsive and shortly EMS arrived, or unsuccessful and intubating the patient was placed on LMA and brought to emergency department where patient was intubated, ABG showed hypercapnic respiratory failure with CO2 87.1, chest x-ray showed patchy infiltrates, most likely secondary to exacerbation of his severe COPD patient was started on Solu-Medrol updraft, azithromycin and Rocephin, patient's symptoms were improving on ventilator patient, later today patient symptom improved and he was extubated currently on BiPAP, unable to provide detailed review of symptom. Patient is seen by pulmonology and consumer marketing analyst and appreciate. (2) Acute exacerbation of chronic obstructive pulmonary disease (COPD): Code(s): J44.1 - Chronic obstructive pulmonary disease with (acute) exacerbation Status: Acute Assessment and Plan: rule out acute COPD exacerbation versus acute pneumonia. Sputum culture. Blood culture. Continue bronchodilators. Continue oxygen support wean off as tolerated. Continue IV antibiotics. We will check an influenza screen. Check urine pneumococcal and Legionella antigen. Continue steroid therapy. (3) Acute encephalopathy: Code(s): G93.40 - Encephalopathy, unspecified Status: Acute Assessment and Plan: Likely secondary to acute respiratory failure. We will check a urine drug screen. Check acetaminophen and salicylate levels. Check TSH reflex T4. CT brain was unremarkable for acute pathology. Check CK levels. (4) Macrocytic anemia: Code(s): D53.9 - Nutritional anemia, unspecified Status: Acute Assessment and Plan: Acute versus chronic anemia. No signs of acute blood loss at this time. Monitor H&H transfuse p.r.n. (5) Elevated troponin: Code(s): R77.8 - Other specified abnormalities of plasma proteins Status: Acute Assessment and Plan: rule out acute coronary syndrome with elevated troponin. Will check another EKG now. Trend troponin. Consider cardiology consultation in a.m.. (6) Suspected 2019 novel coronavirus infection: Code(s): Z20.828 - Contact with and (suspected) exposure to other viral communicable diseases Status: Acute Assessment and Plan: Patient has been swab for COVID-19. Continue droplet isolation. Continue supportive care. COVID-19 results pending. Additional Plan I suspect the patient will likely need at least 2 nights of inpatient medical therapy for his acute respiratory failure and encephalopathy. I have spent more than 33 minutes of critical care time with this patient tonight. Date of service was April 24, 2020 at approximately 1:55 a.m. Subjective Date/time seen: 04/25/20 17:00 Patient is 75-year-old male with history of severe end stage COPD chronic respiratory failure on 4 L oxygen, patient activated his life alert which alerted his family, upon arrival of his family patient was found unresponsive and shortly EMS arrived, or unsuccessful and intubating the patient was placed on LMA and brought to emergency department where patient was intubated, ABG showed hypercap
[2020-04-25] MEDS: methylPREDNISolone SOD SUCC 40 MG VIAL IV PUSH ×2 (17:24→23:47)
[2020-04-25] MEDS: BUDESONIDE RESPULE NEB 0.5 MG/2 ML AMP INHALATION (21:17)
[2020-04-25 23:55] LABS: Glucose Point of Care 231 (65-105)
[2020-04-26] VITALS (22 sets, daily range): BP systolic 117–158; BP diastolic 67–87; PULSE 57–119; RESP 14–28; TEMP 36.4–37.6; O2SAT 89–100
[2020-04-26 03:32] LABS: Hemoglobin 10.7 g/dL (14.0-18.0); Mean Corpuscular HGB Conc 32.4 g/dl (32-36); Mean Corpuscular Hemoglobin 31.6 pg (26-34); Mean Corpuscular Volume 97.3 fl (80-100); Mean Platelet Volume 9.4 fl (7.4-10.4); Platelet Count Result 197 k/mm3 (150-375); Red Blood Count 3.39 M/mm3 (4.6-6.20); Red Cell Distribution Width 15.3 % (11.5-14.5); White Blood Count 11.8 K/mm3 (4.5-10.0)
[2020-04-26] MEDS: IPRATROPIUM BR 0.02% INH SOLN 0.5 MG/2.5 ML VIAL INHALATION ×4 (03:36→22:42)
[2020-04-26] MEDS: ALBUTEROL SULFATE NEB 2.5 MG/0.5 ML INH INHALATION ×5 (03:36→22:43)
[2020-04-26 04:09] LABS: Anion Gap 3.99999 mmol/L (8-16); Blood Urea Nitrogen 48 mg/dL (9-20); Calcium 8.8 mg/dL (8.4-10.2); Carbon Dioxide > 40 mmol/L (22-30); Chloride 92 mmol/L (98-107); Estimated CRCL calculation 67 ml/min; Estimated Glomerular Filt Rate > 60; Glucose 231 mg/dL (75-110); Potassium 4.1 mmol/L (3.4-5.0); Sodium 136 mmol/L (137-145)
[2020-04-26] MEDS: INSULIN ASPART (*BKC) 100 UNITS/ML SUB-Q (05:24)
[2020-04-26] MEDS: CENTRAL LINE FLUSH 10 ML IV PUSH (05:24)
[2020-04-26] MEDS: methylPREDNISolone SOD SUCC 40 MG VIAL IV PUSH ×4 (05:24→23:54)
[2020-04-26 05:30] LABS: Glucose Point of Care 204 (65-105)
[2020-04-26] MEDS: BUDESONIDE RESPULE NEB 0.5 MG/2 ML AMP INHALATION ×2 (08:01→22:43)
[2020-04-26] MEDS: PANTOPRAZOLE SODIUM IV 40 MG VIAL IV PUSH (10:03)
[2020-04-26] MEDS: ENOXAPARIN 40 MG/0.4 ML SYRINGE SUB-Q (10:03)
--- NOTE | 2020-04-26 11:49 | PCSTNOTE ---
The patient EVALUATION was not able to be completed on 04/26/20 due to reduced oxygen levels making patient feel uncomfortable. Will plan to attempt evaluation as soon as patient condition permits.
--- NOTE | 2020-04-26 11:53 | WPDINTPN ---
Progress Note: A&P Assessment and Plan (1) Acute respiratory failure with hypercapnia: Code(s): J96.02 - Acute respiratory failure with hypercapnia Status: Acute Assessment and Plan: extubated on 04/25 to BIPAP 18/, back up rate of 16 and titrating FiO2 for sats of 88-92%. He has been taken off BiPAP today and seems to be tolerating well. He is currently on 4 L of oxygen which is his baseline. (2) Chronic respiratory failure: Qualifiers: Respiratory failure complication: unspecified whether with hypoxia or hypercapnia Qualified Code(s): J96.10 - Chronic respiratory failure, unspecified whether with hypoxia or hypercapnia Code(s): J96.10 - Chronic respiratory failure, unspecified whether with hypoxia or hypercapnia Status: Acute Assessment and Plan: Chronic hypoxic respiratory failure and on 4 L of oxygen at his baseline. (3) Severe chronic obstructive pulmonary disease: Code(s): J44.9 - Chronic obstructive pulmonary disease, unspecified Status: Acute Assessment and Plan: -continue Solu-Medrol with 40 mg IV every 6 hours for today. May decrease the dose to 40 mg IV every 8 hours in the a.m.. - continue duonebs Q6h - pulmicort added 0.5 mg bid (4) COPD exacerbation: Code(s): J44.1 - Chronic obstructive pulmonary disease with (acute) exacerbation Status: Acute Assessment and Plan: Is above (5) Pneumonia: Code(s): J18.9 - Pneumonia, unspecified organism Status: Acute Assessment and Plan: Sputum cultures growing Serratia marcescens. Sensitivities are pending. Continue ceftriaxone and azithromycin for now. He may need a chest CT because the opacity in the right upper lobe lung zone seems not order in shape. It can be done once his respiratory status improved during this hospitalization. Additional Plan PT OT and speech will be consulted. He will be started on diet after speech evaluation clears him. Out of bed to chair. Incentive spirometry. Encourage deep breathing and cough. DVT prophylaxis with subcu Lovenox GI prophylaxis not indicated and will stop IV pantoprazole. [facility] He may get transferred to [place] facility. Code status: Full code Critical care time spent: 34 minutes Due to a high probability of clinically significant, life threatening deterioration, the patient required my highest level of preparedness to intervene emergently and I personally spent this critical care time directly and personally managing the patient. This critical care time included obtaining a history; examining the patient; pulse oximetry; ordering and review of studies; arranging urgent treatment with development of a management plan; evaluation of patient's response to treatment; frequent reassessment; and discussions with other providers. It was exclusive of separately billable procedures and treating other patients and teaching time. Please see Assessment and Plan section and the rest of the note for further information on patient assessment and treatment Subjective Date/time seen: 04/26/20 11:53 He was extubated on 04/25. He was extubated to BiPAP. He remained on BiPAP overnight. I took him off in the morning and put him on 4 L of oxygen through nasal cannula. He seems to be tolerating well. Denied have any significant shortness of breath, cough, chest pain fever and chills. He remain on steroids and bronchodilator. He is on antibiotics with ceftriaxone vancomycin and azithromycin. He does have history of chronic hypoxic respiratory failure and uses 4 L of oxygen at his baseline. Interval history: 75 y/o male with severe COPD, hyperlipidemia, AFib, prior hisotory of TB is intubated for COPD exacerbation. Now he has been extubated. Review of Systems Review of Systems: All systems reviewed & are unremarkable except as noted in HPI and below Exam Const: General: cooperative and
--- NOTE | 2020-04-26 12:15 | PC.NURSE ---
Update given to POA, Seems to be tolerating 4L of O2 per NC well, this is his baseline oxygen requirement. Unable to work with speech therapy as he is too short of breath, they will return later today or tomorrow 04/26/20 to evaluate him.
--- NOTE | 2020-04-26 12:19 | PCDIET ---
Nutrition Follow-Up Complete: Inadequate oral intake related to oral intubation as evidenced by NPO status. Patient to meet estimated nutritional needs. Goal: Goal not met. Continue goal. Pt current nutrition is npo Nutrition recommendation: Advance diet as tolerated to diabetic diet Last recorded weight is 69.9 kg, up from admit wt of 65.5kg Bowel Motility: Labs Reviewed:Na 136, Glucose 231 Meds Noted:Insulin, albuterol, solumedrol Additional Notes: Pt extubated. Plans for swallow eval. Recommend a diabetic diet. If PO diet not appropriate, recommend Glucerna 1.2 at 60ml/hr to provide 1584kcals, 79g protein, and 1062ml of free water over 22hrs. Reassessing every three days.
--- NOTE | 2020-04-26 17:21 | PM.IMPN ---
Progress Note: A&P Assessment and Plan (1) Acute respiratory failure with hypercapnia: Code(s): J96.02 - Acute respiratory failure with hypercapnia Status: Acute Assessment and Plan: Acute respiratory failure on superimposed chronic respiratory failure may be secondary to hypercapnia and respiratory arrest among other possible causes of respiratory failure such as acute pneumonia. We will obtain a urine drug screen. He will be admitted to ICU, telemetry, NPO, continue ventilatory support and wean off as tolerated. RT assess and treat. Monitor ABG. Seamer Operator, Dr. Mendoza has been consulted. 04/26/20 17:21 Patient is 75-year-old male with history of severe end stage COPD chronic respiratory failure on 4 L oxygen, patient activated his life alert which alerted his family, upon arrival of his family patient was found unresponsive and shortly EMS arrived, or unsuccessful and intubating the patient was placed on LMA and brought to emergency department where patient was intubated, ABG showed hypercapnic respiratory failure with CO2 87.1, chest x-ray showed patchy infiltrates, most likely secondary to exacerbation of his severe COPD patient was started on Solu-Medrol updraft, azithromycin and Rocephin, patient's symptoms were improving on ventilator patient, later on 04/25 patient symptom improved and he was extubated placed on BiPAP, today patient out of ICU in IM on 4 L nasal cannula does complain of shortness of breath and wheezing, states feeling better than compared to when he arrived, denies any fever chills, waiting to be transferred to [facility] where most of his providers are located. (2) Acute exacerbation of chronic obstructive pulmonary disease (COPD): Code(s): J44.1 - Chronic obstructive pulmonary disease with (acute) exacerbation Status: Acute Assessment and Plan: rule out acute COPD exacerbation versus acute pneumonia. Sputum culture. Blood culture. Continue bronchodilators. Continue oxygen support wean off as tolerated. Continue IV antibiotics. We will check an influenza screen. Check urine pneumococcal and Legionella antigen. Continue steroid therapy. (3) Acute encephalopathy: Code(s): G93.40 - Encephalopathy, unspecified Status: Acute Assessment and Plan: Likely secondary to acute respiratory failure. We will check a urine drug screen. Check acetaminophen and salicylate levels. Check TSH reflex T4. CT brain was unremarkable for acute pathology. Check CK levels. (4) Macrocytic anemia: Code(s): D53.9 - Nutritional anemia, unspecified Status: Acute Assessment and Plan: Acute versus chronic anemia. No signs of acute blood loss at this time. Monitor H&H transfuse p.r.n. (5) Elevated troponin: Code(s): R77.8 - Other specified abnormalities of plasma proteins Status: Acute Assessment and Plan: rule out acute coronary syndrome with elevated troponin. Will check another EKG now. Trend troponin. Consider cardiology consultation in a.m.. (6) Suspected 2019 novel coronavirus infection: Code(s): Z20.828 - Contact with and (suspected) exposure to other viral communicable diseases Status: Acute Assessment and Plan: Patient has been swab for COVID-19. Continue droplet isolation. Continue supportive care. COVID-19 results pending. Subjective Date/time seen: 04/26/20 17:21 Patient is 75-year-old male with history of severe end stage COPD chronic respiratory failure on 4 L oxygen, patient activated his life alert which alerted his family, upon arrival of his family patient was found unresponsive and shortly EMS arrived, or unsuccessful and intubating the patient was placed on LMA and brought to emergency department where patient was intubated, ABG showed hypercapnic respiratory failure with CO2 87.1, chest x-ray showed patchy infiltrates, most likely secondary to exacerbation of his severe COPD patient was st
[2020-04-26 17:34] LABS: Glucose Point of Care 145 (65-105)
[2020-04-26 18:49] LABS: Glucose Point of Care 195 (65-105)
--- NOTE | 2020-04-26 21:24 | PC.NURSE ---
late entry 1440 patient transferred from ICU 10 to 205-
[2020-04-27] VITALS: BP 114/58; PULSE 72; RESP 20; TEMP 36; O2SAT 90
--- NOTE | 2020-04-28 13:44 | PM.TDS ---
Transfer Discharge Sum: Prov Provider Date of admission: 04/23/20 23:44 Primary care physician: [facility]MADDISON Admitting clinician: Rich Lorenzana MD Consults: 04/23/20 23:45 Consult to Physician Routine Comment: Consulting Provider: Rigo Mendoza Reason for consultation: Respiratory failure Has provider been notified: Yes DS: Admitting Diagnosis Admitting Diagnosis Admitting Diagnosis: Acute respiratory failure, encephalopathy DS: Discharge Diagnosis Discharge Diagnosis (1) Acute respiratory failure with hypercapnia: Code(s): J96.02 - Acute respiratory failure with hypercapnia Status: Acute Assessment and Plan: Acute respiratory failure on superimposed chronic respiratory failure may be secondary to hypercapnia and respiratory arrest among other possible causes of respiratory failure such as acute pneumonia. We will obtain a urine drug screen. He will be admitted to ICU, telemetry, NPO, continue ventilatory support and wean off as tolerated. RT assess and treat. Monitor ABG. Machine Candle Molder, Dr. Mendoza has been consulted. 04/26/20 17:21 Patient is 75-year-old male with history of severe end stage COPD chronic respiratory failure on 4 L oxygen, patient activated his life alert which alerted his family, upon arrival of his family patient was found unresponsive and shortly EMS arrived, or unsuccessful and intubating the patient was placed on LMA and brought to emergency department where patient was intubated, ABG showed hypercapnic respiratory failure with CO2 87.1, chest x-ray showed patchy infiltrates, most likely secondary to exacerbation of his severe COPD patient was started on Solu-Medrol updraft, azithromycin and Rocephin, patient's symptoms were improving on ventilator patient, later on 04/25 patient symptom improved and he was extubated placed on BiPAP, today patient out of ICU in IM on 4 L nasal cannula does complain of shortness of breath and wheezing, states feeling better than compared to when he arrived, denies any fever chills, waiting to be transferred to [facility] where most of his providers are located. (2) Acute exacerbation of chronic obstructive pulmonary disease (COPD): Code(s): J44.1 - Chronic obstructive pulmonary disease with (acute) exacerbation Status: Acute Assessment and Plan: rule out acute COPD exacerbation versus acute pneumonia. Sputum culture. Blood culture. Continue bronchodilators. Continue oxygen support wean off as tolerated. Continue IV antibiotics. We will check an influenza screen. Check urine pneumococcal and Legionella antigen. Continue steroid therapy. (3) Acute encephalopathy: Code(s): G93.40 - Encephalopathy, unspecified Status: Acute Assessment and Plan: Likely secondary to acute respiratory failure. We will check a urine drug screen. Check acetaminophen and salicylate levels. Check TSH reflex T4. CT brain was unremarkable for acute pathology. Check CK levels. (4) Macrocytic anemia: Code(s): D53.9 - Nutritional anemia, unspecified Status: Acute Assessment and Plan: Acute versus chronic anemia. No signs of acute blood loss at this time. Monitor H&H transfuse p.r.n. (5) Elevated troponin: Code(s): R77.8 - Other specified abnormalities of plasma proteins Status: Acute Assessment and Plan: rule out acute coronary syndrome with elevated troponin. Will check another EKG now. Trend troponin. Consider cardiology consultation in a.m.. (6) Suspected 2019 novel coronavirus infection: Code(s): Z20.828 - Contact with and (suspected) exposure to other viral communicable diseases Status: Acute Assessment and Plan: Patient has been swab for COVID-19. Continue droplet isolation. Continue supportive care. COVID-19 results pending. Transfer Discharge Sum: Med Medications Active and Home Medications: Home Medications apixaban [E
== END 2020-04-27 00:45 | DRG 208 ==
LOC: ANHED 04-24 00:17 → ANHICU 04-24 03:37 → ANHIMU 05-01 14:54
PROVIDERS: Internal Medicine; Admitting Provider Family Medicine; Emergency Provider Emergency Medicine; Visit Provider Internal Medicine
DX: J96.22 Acute and chronic respiratory failure with hypercapnia (principal); J44.1 Chronic obstructive pulmonary disease with (acute) exacerbation; G93.40 Encephalopathy, unspecified; D53.9 Nutritional anemia, unspecified; I48.91 Unspecified atrial fibrillation; Z99.81 Dependence on supplemental oxygen
CPT/HCPCS: 31500; 36415; 36569; 36600; 70450; 71045; 80048; 80053; 80202; 80307; 81001; 82375; 82550; 82805; 83036; 83050; 83605; 83735; 83880; 84100; 84443; 84484; 85025; 85027; 85610; 85730; 86140; 87040; 87070; 87077; 87186; 87205; 87635; 87804; 93005; 94002; 94003; 94640; 96374; 96375; 97165; 99291; A9270; C1751; C8929; C9113; C9803; J0456; J0696; J1650; J1815; J1940; J2250; J2310; J2920; J2930; J3010; J3370; J7120; Q9957; U0003